=== PATIENT | female | born 1960 | race Caucasian/White ===

== ENCOUNTER 2022-08-06 15:17 | Outpatient (REF) | payer OTHER, SELFPAY ==
--- NOTE | ~2022-08-06 | MM_ITS ---
EXAMINATION: MM SCREENING DIGITAL BREAST TOMOSYNTHESIS, BILATERAL CLINICAL INFORMATION: Screening. Asymptomatic. The lifetime risk of breast cancer based on the Tyrer-Cuzick Model is 6.5%. COMPARISON: Mammography: None TECHNIQUE: Digital breast tomosynthesis is performed in both the craniocaudal and mediolateral oblique views along with computer-aided detection (CAD). Synthesized 2D images are generated from the tomosynthesis. FINDINGS: There are scattered areas of fibroglandular density (ACR BI-RADS breast composition Category b). About the anterior upper outer aspect of the left breast there is a region of density likely representing superimposition of fibroglandular tissue but for which spot compression view is recommended. There are noted to be a three (3) partially circumscribed densities about the central and medial aspects of the left breast measuring from 3 to 5 mm in diameter. Recommend spot compression view on these as well. If lesions are persistent then ultrasound could be performed. No right breast abnormality is appreciated. MM/MM tomosynthesis screening BI IMPRESSION: Left breast findings for further evaluation as described. ASSESSMENT: BI-RADS 0: Incomplete - Need Additional Imaging Evaluation RECOMMENDATION: 1. Additional views of the left breast 2. Targeted ultrasound if warranted after review of the additional views. 3. Radiology department staff will contact the patient for additional imaging. This patient's information was entered into a reminder system with a target due date for their next mammogram.
== END 2022-08-06 15:18 | disposition home or self-care (01) ==
LOC: HO.MAMMO 15:17
PROVIDERS: Visit Provider Hospitalist
DX: Z12.31 Encounter for screening mammogram for malignant neoplasm of breast (principal)
CPT/HCPCS: 77063; 77067

== ENCOUNTER 2022-08-07 09:08 | Outpatient (REF) | payer OTHER, SELFPAY ==
[2022-08-07 11:55] LABS: Hematocrit 42.8 % (37.0-47.0); Hemoglobin 14.2 g/dl (12.0-16.0); Mean Corpuscular HGB Conc 33.2 g/dl (31.0-35.0); Mean Corpuscular Hemoglobin 28.2 pg (27.0-33.0); Mean Corpuscular Volume 85.1 fL (80.0-98.0); Mean Platelet Volume 9.5 fL (9.4-12.3); Platelet Count 367 X10*3/uL (160-400); Red Blood Count 5.03 X10*6/uL (4.20-5.50); Red Cell Distribution Width 12.3 % (11.0-16.0); White Blood Count 6.5 X10*3/uL (4.8-10.8)
[2022-08-07 12:40] LABS: Alanine Aminotransferase 23 U/L (0-31); Albumin Level 4.4 g/dL (3.5-5.0); Alkaline Phosphatase 68 U/L (39-117); Anion Gap 11 (12-20); Aspartate Amino Transferase 19 U/L (5-31); Bilirubin Total 0.7 mg/dL (0.0-1.0); Blood Urea Nitrogen 11 mg/dL (9-16); Carbon Dioxide 29 mmol/L (22-29); Chloride 106 mmol/L (96-108); Cholesterol 198 mg/dL; Estimated Glomerular Filt Rate > 60; Glucose Fasting 110 mg/dL (60-99); HDL Cholesterol 40 mg/dL; LDL Cholesterol Calculated 124 mg/dl; Potassium 4.3 mmol/L (3.3-5.1); Sodium 142 mmol/L (135-145); TSH reflex Free T4 1.61 uIU/mL (0.32-4.0); Total Protein 6.3 g/dL (6.5-8.0); Triglycerides 173 mg/dL
== END 2022-08-07 09:09 | disposition home or self-care (01) ==
LOC: HO.WFDLDS 09:08
PROVIDERS: Visit Provider Hospitalist
DX: F43.9 Reaction to severe stress, unspecified (principal); L66.1 Lichen planopilaris; E66.9 Obesity, unspecified
CPT/HCPCS: 36415; 80053; 80061; 84443; 85027

== ENCOUNTER 2022-08-28 13:45 | Outpatient (REF) | payer OTHER, SELFPAY ==
--- NOTE | ~2022-08-28 | MM_ITS ---
EXAMINATION: MM DIAGNOSTIC DIGITAL BREAST TOMOSYNTHESIS, LEFT CLINICAL INFORMATION: Recall from baseline screening for tiny nodularity central inner breast and question of asymmetric density anterior upper outer left breast. Age 62. TC score 7%. No known family history breast cancer. COMPARISON: Mammography: 08/06/2022 TECHNIQUE: Digital breast tomosynthesis is performed. 2D images are generated from the tomosynthesis. The following views are obtained: Spot CC x2, spot ML. FINDINGS: There are scattered areas of fibroglandular density (ACR BI-RADS breast composition Category b). The additional views anterior upper outer left breast show normal fibroglandular tissue. There is no underlying mass or architectural abnormality. Additional views central inner left breast demonstrate 3 punctate circumscribed nodules under 5 mm. Margins are smooth. Long-term chronicity is unknown and short interval six-month follow-up will be requested. Results are discussed with the patient at time of visit. MM/MM tomosynthesis added views L IMPRESSION: -Additional views anterior upper outer left breast are unremarkable. No mass or architectural abnormality. -Tiny benign-appearing nodularity central inner left breast with smooth margins consistent with recent baseline exam. ASSESSMENT: BI-RADS 3: Probably Benign RECOMMENDATION: Diagnostic left mammography in 6 months. This patient's information was entered into a reminder system with a target due date for their next mammogram.
== END 2022-08-28 13:46 | disposition home or self-care (01) ==
LOC: HO.MAMMO 13:45
PROVIDERS: PCP Hospitalist; Visit Provider Hospitalist
DX: R92.2 Inconclusive mammogram (principal)
CPT/HCPCS: 77061; 77065

== ENCOUNTER 2023-03-16 14:42 | Outpatient (REF) | payer OTHER, SELFPAY ==
--- NOTE | ~2023-03-16 | MM_ITS ---
EXAMINATION: MM DIAGNOSTIC DIGITAL BREAST TOMOSYNTHESIS, LEFT CLINICAL INFORMATION: 6 month follow-up tiny nodules anterior left breast previously seen 08/28/2022, and 08/06/2022. COMPARISON: Mammography: 08/28/2022, 08/06/2022. TECHNIQUE: Digital left breast tomosynthesis is performed in both the craniocaudal and mediolateral oblique views along with computer-aided detection (CAD). Synthesized 2D images are generated from the tomosynthesis. FINDINGS: There are scattered areas of fibroglandular density (ACR BI-RADS breast composition Category b). Additional views central anterior and inner left breast demonstrate 3 punctate circumscribed nodules under 5 mm., Entirely unchanged from 6 months prior. Margins are smooth. Given stability since 08/06/2022, these are likely benign. There are no new abnormalities. Six-month follow-up recommended to establish a one-year stability. There are no additional new abnormalities in the left breast. MM/MM tomosynthesis diagnostic LT IMPRESSION: There are no significant changes from prior study. Stable tiny anterior left breast nodules, without change are presumably and probably benign. Continued monitoring in six-months recommended when the patient is due for bilateral screening. ASSESSMENT: BI-RADS BI-RADS 3 - Probably benign finding(s) - 6 month follow-up suggested RECOMMENDATION: 6 Month F/U Results were provided to the patient at time of visit by the technologist. This patient's information was entered into a reminder system with a target due date for their next mammogram.
== END 2023-03-16 14:43 | disposition home or self-care (01) ==
LOC: HO.MAMMO 14:42
PROVIDERS: PCP Family Medicine; Visit Provider Hospitalist
DX: R92.2 Inconclusive mammogram (principal)
CPT/HCPCS: 77061; 77065

== ENCOUNTER → 2023-03-16 15:00 | Outpatient (BNV) | payer OTHER, SELFPAY | PROVIDERS: PCP Family Medicine; Visit Provider Radiology Diagnostic Radiology | DX: N63.20 Unspecified lump in the left breast, unspecified quadrant (principal) | CPT/HCPCS: 77061; 77065 ==

== ENCOUNTER 2023-09-09 13:00 | Outpatient (REF) | payer OTHER, SELFPAY ==
--- NOTE | ~2023-09-09 | MM_ITS ---
EXAMINATION: MM SCREENING DIGITAL BREAST TOMOSYNTHESIS, BILATERAL CLINICAL INFORMATION: Screening. Asymptomatic. 6 month follow-up for 3 tiny nodules anterior left breast previously seen 08/28/2022, and 08/06/2022. COMPARISON: Mammography: 03/16/2023, 08/28/2022, 08/06/2022 (BI-RADS 0). TECHNIQUE: Digital breast tomosynthesis is performed in both the craniocaudal and mediolateral oblique views along with computer-aided detection (CAD). Synthesized 2D images are generated from the tomosynthesis. FINDINGS: There are scattered areas of fibroglandular density (ACR BI-RADS breast composition Category b). The central anterior and inner left breast demonstrates 3 punctate circumscribed nodules under 5 mm, entirely unchanged from 6 months prior. Margins are smooth. These remain stable over one year, and remain probably benign. Mammographic follow-up in one year recommended to establish two-year stability. Otherwise, there are no suspicious masses, suspicious grouped calcifications, or areas of architectural distortion in either breast. The parenchymal pattern is stable from prior exams. No suspicious skin or axillary abnormalities. MM/MM tomosynthesis screening BI IMPRESSION: There are no significant changes from the prior study. Stable tiny anterior left breast nodules, without change remain probably benign. Continued monitoring in one year recommended when the patient is due for bilateral screening, to establish a two-year stability and benignity. There are no findings suspicious for malignancy in either breast. ASSESSMENT: BI-RADS BI-RADS 3 - Probably benign finding(s) - 12 month follow-up suggested RECOMMENDATION: 12 month diagnostic follow up Results were provided to the patient at time of visit by the technologist. This patient's information was entered into a reminder system with a target due date for their next mammogram.
== END 2023-09-09 13:01 | disposition home or self-care (01) ==
LOC: HO.MAMMO 13:00
PROVIDERS: PCP Family Medicine; Visit Provider Family Medicine
DX: Z12.31 Encounter for screening mammogram for malignant neoplasm of breast (principal)
CPT/HCPCS: 77063; 77067

== ENCOUNTER → 2023-09-09 13:00 | Outpatient (BNV) | payer OTHER, SELFPAY | PROVIDERS: PCP Family Medicine; Visit Provider Radiology Diagnostic Radiology | DX: Z12.31 Encounter for screening mammogram for malignant neoplasm of breast (principal) | CPT/HCPCS: 77063; 77067 ==

== ENCOUNTER 2024-08-14 08:16 | Outpatient (AMB) | payer OTHER, SELFPAY ==
--- NOTE | 2024-08-14 08:24 | MHC.PC.OV ---
Vital Signs 08/14/24 08:29 Height 5 ft 6 in Weight 198 lb 4 oz BMI 32.0 BP 116/72 Blood Pressure Location Rt brachial Position Sitting Respiration 14 Pulse 91 Pulse Source Pulse Oximeter Temp 98.8 F Temp Source Temporal Artery Scan Pulse Oximetry (%) 95 Oxygen Delivery Method Room Air Intake Visit Reasons: Annual PE Intake Note: Lianne presents in the office today for her annual physical. Allergies Seasonal Allergies Allergy (Verified 08/14/24 08:25) Hayfever Tobacco use date assessed: 08/14/24 HPI HPI Comments History of Present Illness Details This is a 64-year-old female presenting for a physical exam. She is followed by Dermatology for alopecia. She received Shingrix vaccine on 03/06/24, and the first week of March she developed Shingles on the right side of her face. This resolved on prednisone and valtrex. Patient wanted to know if and when she should get the 2nd dose of Shingrix vaccine. I will review recommendations for this particular situation. She notes that she received the influenza vaccine and COVID-19 vaccine at the same time as Shingrix. Pneumonia vaccine was recommended for her. She agreed, but we did not have it in the office today so she will get this at the pharmacy. Patient is referred for annual gynecologic exam. Mammogram scheduled next month. Bone density ordered. She declines colonoscopy. Patient had a negative Cologuard screening on 08/25/2022. ROS: Constitutional: No unexplained weight loss, fever, chills, fatigue or night sweats. Eyes: No vision changes, blurry vision, double vision, eye pain, eye redness, eye discharge. ENT: No hearing loss, sneezing, congestion, runny nose or sore throat. Respiratory: No shortness of breath, cough or sputum production. Cardiovascular: No chest pain, chest pressure or chest discomfort. No palpitations or pedal edema. Gastrointestinal: No anorexia, nausea, vomiting or diarrhea. No abdominal pain or blood in stool. Genitourinary: No dysuria, hematuria, urinary frequency. Neurologic: No headache, dizziness, syncope, unilateral weakness, ataxia, numbness or tingling in the extremities. Musculoskeletal: No muscle pain, back pain, joint pain or swelling. Hematologic/Lymphatics: No bleeding or bruising. No painful lymph nodes. Skin: No rash. Denies changing moles or freckles. Endocrine: No cold or heat intolerance. No polyuria or polydipsia. Psychiatric: No depression or anxiety. No SI/HI. Physical exam: Constitutional: Alert, in no distress. Head: Normocephalic. Eyes: Pupils are equal, round and reactive to light. Extraocular muscles intact. Ear, Nose and Throat: Canals clear. TMs normal. Normal nasal mucosa. No nasal discharge. No oral lesions. Neck: Supple, Full range of motion. No lymphadenopathy. No palpable thyroid masses. Respiratory: Clear to auscultation. Cardiovascular: S1 S2 regular. No murmurs. No carotid bruits. Gastrointestinal: Abdomen soft, non-tender, non-distended. Normal bowel sounds. No palpable masses. Neurologic: No focal neurological deficits. Symmetric patellar reflexes. Moves all extremities spontaneously. Sensation intact bilaterally. Skin: Freckled skin. No rashes. Musculoskeletal: No gross deformities. Normal range of motion. Extremities: Warm and well perfused. No clubbing, cyanosis or edema. Intact peripheral pulses. Psychiatric: Normal mood and affect [facility] Medical History (Updated 08/14/24 @ 08:44 by ANGELI Jauregui) Routine physical examination Screening for cardiovascular condition Sinusitis Frontal fibrosing alopecia Surgical History No pertinent past surgical history Family History Father Alcoholism Paternal Grandmother Asthma Maternal Grandfather Cardiovascular disease Paternal Grandfather Alcoholism Brother Psychiatric diagnosis Social History (Updated 08/14/24 @ 08:28 by Minoo Cosme MA) Housing: Condominium Alcohol intake: current Alcohol intake frequency: a few times a week Alcohol type: wine and hard liquor Patient Tobacco Use Status: Never used Tobacco e-Cigarette/Vaping Use: Never Used Substance Use Type: Marijuana service: No Current occupational status: retired Cognitive needs: No Hearing needs: No Vision needs: Yes (Patient see's an eye doctor ) Questionnaire PHQ-9 Over the last 2 weeks, how often have you been bothered by any of the following problems? 1. Little interest or pleasure in doing things: not at all 2. Feeling down, depressed, or hopeless: not at all 3. Trouble falling or staying asleep, or sleeping too much: several days 4. Feeling tired or having little energy: several days 5. Poor appetite or overeating: several days 6. Feeling bad about yourself - or that you are a failure or have let yourself or your family down: not at all 7. Trouble concentrating on things, such as reading the newspaper or watching television: not at all 8. Moving or speaking so slowly that other people could have noticed. Or the opposite - being so fidgety or restless that you have been moving around a lot more than usual: not at all 9. Thoughts that you would be better off or of hurting yourself in some way: not at all Total score: 3 Depression Screening Interpretation: Negative Depression Screening Done: Yes 68540 - PHQ-9 Billing: Patient declined-do not bill Source: Developed by Drs. Dre Nazario, Nay Joseph, Luis Almanza and colleagues, with an educational trinh from [employer]. Thrive Questionnaire Date Thrive assessed: 08/14/24 I am a: Patient What is your living situation today?: I have a steady place to live Within the past 12 months, did the food you bought not last and you didn't have the money to get more?: Never true Within the past 12 months, did you worry whether your food would run out before you got money to buy more?: Never true Do you have trouble paying for medicines?: No Do you have trouble getting transportation to medical appointments?: No Do you have trouble paying your heating and electricity bill?: No Do you have trouble taking care of your child, family member or friend?: No Do you have trouble with day-to-day activities such as bathing, preparing meals, shopping, managing finances, etc.?: No Are you currently unemployed and looking for a job?: No Are you interested in more education?: No Please select the resources that you would like help with: None Currently or been in a relationship where the following occur: No concerns reported THRIVE Score: 0 AUDIT C Alcohol Use Questionnaire (AUDIT-C) 1. How often do you have a drink containing alcohol?: 2-4 times a month 2. How many drinks containing alcohol do you have on a typical day when you are drinking?: 1 or 2 3. How often do you have six or more drinks on one occasion?: Never Total Score: 2 Score Reviewed/Action Taken: No MICHELE-7 AMB Questionnaire MICHEEL-7 Date MICHELE - 7 assessed: 08/14/24 Feeling nervous, anxious, or on edge: 1 = Several days Not being able to stop or control worryin = Several days Worrying too much about different things: 1 = Several days Trouble relaxin = Several days Being so restless that it is hard to sit still: 0 = Not at all Becoming easily annoyed or irritable: 1 = Several days Feeling afraid as if something awful might happen: 1 = Several days Total MICHELE-7 score (0-4 normal; 5-9 mild; 10-14 moderate; 15-21 severe): 6 Source: Developed by Drs. Dre Nazario, Nay Joseph, Luis Almanza and colleagues, with an educational trinh from [employer]. ACT Questionnaire In the past 4 weeks, how much of the time did your asthma keep you from getting as much done at work, school or at home?: None of the time Score: 5 Physical exam (Primary Care) Vital Signs: Last Vital Signs Temp 98.8 F 08/14/24 08:29 Pulse 91 08/14/24 08:29 Resp 14 08/14/24 08:29 BP 116/72 08/14/24 08:29 Pulse Ox 95 08/14/24 08:29 Oxygen Delivery Method Room Air 08/14/24 08:29 BMI result Body Mass Index 32.0 Tobacco/Smoking Status: Tobacco use Status Tobacco use date assessed 08/14/24 08/14/24 08:33 Patient Tobacco Use Status Never used Tobacco 08/14/24 08:33 e-Cigarette/Vaping Use Never Used 08/14/24 08:33 PHQ-9: PHQ-9 Score PHQ-9: Total score 3 08/14/24 08:33 Depression Screening Interpretation: Negative Thrive Assessment: Date of Thrive Assessment Date Thrive assessed 08/14/24 08/14/24 08:33 Currently or been in a relationship where the following occur: No concerns reported Coding Level of Care Code Est Pt Prev Care 40-64y(43878) Diagnoses Routine physical examination Z00.00 Screening for cardiovascular condition Z13.6 Frontal fibrosing alopecia L66.1 Assessment & Plan Assessment & Plan (1) Routine physical examination: Code(s): Z00.00 - Encounter for general adult medical examination without abnormal findings Category: Medical (2) Screening for cardiovascular condition: Code(s): Z13.6 - Encounter for screening for cardiovascular disorders Category: Medical (3) 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 As part of this visit we reviewed the following issues, which are considered and essential part of preventative health in this age group: - Breast Cancer screening - Annual Boring Inspector exam - Screening for colon cancer - Blood pressure screening - Cholesterol screening - Osteoporosis prevention including calcium/vitamin D intake, weight bearing exercise & smoking cessation. Patient takes a multivitamin which contains vitamin-D. - Nutritional and exercise counseling - Counseling of injury prevention including fire prevention, smoke alarms and seat belt usage - Screening for depression - Education about skin cancer - Recommendations about immunizations - Recommendation of an eye exam Follow up in 1 year for a complete physical exam. Orders: Orders Comprehensive Met. Panel Today Z00.00 - Encounter for general adult medical examination without abnormal findings, Z13.6 - Encounter for screening for cardiovascular disorders Lipid Panel Today E78.5 - Hyperlipidemia, unspecified, Z00.00 - Encounter for general adult medical examination without abnormal findings, Z13.6 - Encounter for screening for cardiovascular disorders Complete Blood Count no Diff Today Z00.00 - Encounter for general adult medical examination without abnormal findings, Z13.6 - Encounter for screening for cardiovascular disorders XR DEXA axial skeleton Today E28.39 - Other primary ovarian failure Referrals Dermatology Referral 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
[2024-08-14 08:29] VITALS: BP 116/72; PULSE 91; RESP 14; TEMP 37.1; O2SAT 95; BMI 32.0
== END 2024-08-14 09:00 | disposition home or self-care (01) ==
LOC: HO.HMCFM 08:17
PROVIDERS: PCP Family Medicine; Visit Provider Physician Assistant Medical
DX: Z00.00 Encounter for general adult medical examination without abnormal findings (principal); Z13.6 Encounter for screening for cardiovascular disorders; L66.10 Lichen planopilaris, unspecified

== ENCOUNTER 2024-08-14 08:16 | Outpatient (REF) | payer OTHER, SELFPAY ==
[2024-08-14 11:25] LABS: Hematocrit 43.3 % (37.0-47.0); Hemoglobin 14.6 g/dl (12.0-16.0); Mean Corpuscular HGB Conc 33.7 g/dl (31.0-35.0); Mean Corpuscular Hemoglobin 28.1 pg (27.0-33.0); Mean Corpuscular Volume 83.3 fL (80.0-98.0); Mean Platelet Volume 9.5 fL (9.4-12.3); Platelet Count 367 X10*3/uL (160-400); Red Cell Distribution Width 12.1 % (11.0-16.0); White Blood Count 6.4 X10*3/uL (4.8-10.8)
[2024-08-14 11:29] LABS: Alanine Aminotransferase 35 U/L (0-31); Albumin Level 4.7 g/dL (3.5-5.0); Alkaline Phosphatase 77 U/L (39-117); Anion Gap 13 (12-20); Aspartate Amino Transferase 27 U/L (5-31); Bilirubin Total 0.5 mg/dL (0.0-1.0); Blood Urea Nitrogen 12 mg/dL (9-16); Calcium 9.1 mg/dL (8.4-10.2); Carbon Dioxide 26 mmol/L (22-29); Chloride 105 mmol/L (96-108); Cholesterol 205 mg/dL (<200); Estimated Glomerular Filt Rate > 60; Glucose Random 121 mg/dL (60-115); HDL Cholesterol 44 mg/dL (>40); LDL Cholesterol Calculated 128 mg/dL (<100); Sodium 140 mmol/L (135-145); Total Protein 7.2 g/dL (6.5-8.0); Triglycerides 165 mg/dL (<150)
== END 2024-08-14 08:17 | disposition home or self-care (01) ==
LOC: HO.WFDLDS 08:16
PROVIDERS: PCP Family Medicine; Visit Provider Physician Assistant Medical
DX: Z00.00 Encounter for general adult medical examination without abnormal findings (principal); Z13.6 Encounter for screening for cardiovascular disorders; E78.5 Hyperlipidemia, unspecified
CPT/HCPCS: 36415; 80053; 80061; 85027

== ENCOUNTER 2024-09-12 11:15 | Outpatient (REF) | payer OTHER, SELFPAY ==
--- NOTE | ~2024-09-12 | MM_ITS ---
EXAMINATION: MM DIAGNOSTIC DIGITAL BREAST TOMOSYNTHESIS, BILATERAL CLINICAL INFORMATION: Two-year follow-up for left breast asymmetry. COMPARISON: Mammography: Comparison is made with relevant prior exams. TECHNIQUE: Digital breast mammography with tomosynthesis is performed in both the craniocaudal and mediolateral oblique views along with computer-aided detection (CAD). FINDINGS: There are scattered areas of fibroglandular density (ACR BI-RADS breast composition Category b). Right: There are no significant masses, abnormal calcifications, or other abnormalities. Left: The previously seen asymmetry in the central inner left breast is not significantly changed from prior mammograms dating back for 2 years and less conspicuous compared with priors therefore benign. No suspicious masses calcifications or other abnormal findings. Results are provided to the patient at time of visit by the technologist. MM/MM tomosynthesis diagnostic BI IMPRESSION: No mammographic evidence of malignancy. ASSESSMENT: BI-RADS BI-RADS 2 - Benign Findings RECOMMENDATION: 1 year F/U This patient's information was entered into a reminder system with a target due date for their next mammogram. Electronically signed by: Carolee Hammonds DO 09/14/2024 08:58 AM EDT
== END 2024-09-12 11:16 | disposition home or self-care (01) ==
LOC: HO.MAMMO 11:15
PROVIDERS: PCP Family Medicine; Visit Provider Family Medicine
DX: R92.2 Inconclusive mammogram (principal)
CPT/HCPCS: 77062; 77066

== ENCOUNTER → 2024-09-12 11:30 | Outpatient (BNV) | payer OTHER, SELFPAY | PROVIDERS: PCP Family Medicine; Visit Provider Internal Medicine | DX: N64.89 Other specified disorders of breast (principal) | CPT/HCPCS: 77062; 77066 ==

== ENCOUNTER 2024-09-26 09:38 | Outpatient (REF) | payer OTHER, SELFPAY ==
[2024-09-26 11:46] LABS: Alanine Aminotransferase 33 U/L (0-31); Aspartate Amino Transferase 22 U/L (5-31)
[2024-09-26 12:01] LABS: Estimated Average Glucose 131 mg/dL; Hemoglobin A1c % 6.2 % (<6.0)
== END 2024-09-26 09:39 | disposition home or self-care (01) ==
LOC: HO.WFDLDS 09:38
PROVIDERS: Visit Provider Physician Assistant Medical
DX: E11.9 Type 2 diabetes mellitus without complications (principal); R79.89 Other specified abnormal findings of blood chemistry; E78.5 Hyperlipidemia, unspecified
CPT/HCPCS: 36415; 83036; 84450; 84460

== ENCOUNTER 2024-10-03 09:39 | Outpatient (REF) | payer OTHER, SELFPAY ==
--- NOTE | ~2024-10-03 | MM_ITS ---
EXAMINATION: BONE DENSITOMETRY CLINICAL INDICATION: Primary ovarian failure. COMPARISON: This is the patient's baseline examination. TECHNIQUE: Using a [employer] dual-energy x-ray absorptiometry was performed of the lumbar spine and left hip. The images are of good technical quality. Summary results are attached. FINDINGS: AP SPINE L3-L4. BMD 1.239 g/cm2, Z-score 1.0, T-score 0.3,. LEFT FEMUR, NECK: BMD 1.006 g/cm2, Z-score 0.5, T-score 0.0,. IDENTIFIED RISK FACTORS: None listed. HISTORY OF FRACTURE: Secondary osteoporosis. Family history of fracture. MEDICATIONS: None listed. MM/XR DEXA axial skeleton IMPRESSION: 1. DIAGNOSIS: Normal bone mineral density based on the lowest T-score value of 0.3 in the lumbar spine applying World Health Organization criteria. 2. 10-YEAR FRACTURE RISK PREDICTION, FRAX: Normal bone mineral density with low-risk fracture. 3. Treatment Recommendations: NOF guidelines recommend consideration for treatment in postmenopausal women and men age 50 and older presenting with the following: -A hip or vertebral (clinical or morphometric) fracture. -T-score less than or equal to -2.5 at the femoral neck or spine after appropriate evaluation to exclude secondary causes. -Low bone mass at the hip or spine and a 10-year fracture probability by FRAX of greater than or equal to 3% for hip fracture or greater than or equal to 20% for major osteoporotic fracture based on the [place] adapted WHO algorithm. 4. All treatment decisions require clinical judgment and consideration of individual patient risk factors including patient preferences comorbidities, previous drug use, risk factors not captured the fact spondylosis and possible under overestimation of fracture risk at fractures. Additional medical evaluation for secondary causes of bone mineral density may be appropriate FUTURE SCAN RECOMMENDATION: People with diagnosed cases of osteoporosis or at high risk for fracture should have regular bone mineral density tests. For patients eligible for Medicare, routine testing is allowed once every 2 years. The testing frequency can be increased to one year for patients who have rapidly progressing disease, those who are receiving or discontinuing medical therapy to restore bone mass, or have additional risk factors. Electronically signed by: Mathieu Ramon MD 10/03/2024 04:43 PM EDT
== END 2024-10-03 09:40 | disposition home or self-care (01) ==
LOC: HO.MAMMO 09:39
PROVIDERS: PCP Family Medicine; Visit Provider Physician Assistant Medical
DX: Z13.820 Encounter for screening for osteoporosis (principal); E28.39 Other primary ovarian failure
CPT/HCPCS: 77080

== ENCOUNTER → 2024-10-03 10:00 | Outpatient (BNV) | payer OTHER, SELFPAY | PROVIDERS: PCP Family Medicine; Visit Provider Radiology Diagnostic Radiology | DX: E28.39 Other primary ovarian failure (principal) | CPT/HCPCS: 77080 ==

== ENCOUNTER 2024-11-02 08:38 | Outpatient (AMB) | payer OTHER, SELFPAY ==
--- NOTE | 2024-11-02 09:16 | A.OFFVIS_ITS ---
VS Expanded 11/02/24 09:17 11/08/24 13:04 Height 5 ft 6 in 5 ft 6 in Weight 198 lb 3.129 oz 198 lb BMI 32.0 32.0 Intake Visit Reasons: Prediabetes Allergies Seasonal Allergies Allergy (Verified 08/14/24 08:25) Hayfever Nutrition Presentation Details: Pt presents for MNT for Pre DM BS Monitoring Most Recent Diabetes Results: Cholesterol, (<200) 205 mg/dL H 08/14/24 HDL Cholesterol, (>40) 44 mg/dL 08/14/24 Triglycerides, (<150) 165 mg/dL H 08/14/24 Creatinine, (0.5-1.4) 0.75 mg/dL 08/14/24 BUN, (9-16) 12 mg/dL 08/14/24 Sodium, (135-145) 140 mmol/L 08/14/24 Potassium, (3.3-5.1) 4.0 mmol/L 08/14/24 Chloride, (96-108) 105 mmol/L 08/14/24 Carbon Dioxide, (22-29) 26 mmol/L 08/14/24 Calcium, (8.4-10.2) 9.1 mg/dL 08/14/24 AST, (5-31) 22 U/L 09/26/24 ALT, (0-31) 33 U/L H 09/26/24 Total Protein, (6.5-8.0) 7.2 g/dL 08/14/24 Albumin, (3.5-5.0) 4.7 g/dL 08/14/24 EHE-Zdptmcr-Ag.Jeor Equation Height: 5 ft 6 in Weight: 198 lb Resting Metabolic Rate: 1474.00 Calculated Activity Level: Sedentary Calories Needed to Maintain Weight: 1768.80 Diagnosis As related to (etiology) #1: diagnosis As evidenced by (sign/symptom) #1: knowledge deficit of diet (a1c at 6.2% 08/11, elevated Tg, tot chol) [facility] Medical History (Updated 10/02/24 @ 16:58 by ANGELI Jauregui) Prediabetes Hyperlipidemia LFT elevation IFG (impaired fasting glucose) Routine physical examination Screening for cardiovascular condition Sinusitis Frontal fibrosing alopecia Surgical History No pertinent past surgical history Family History Father Alcoholism Paternal Grandmother Asthma Maternal Grandfather Cardiovascular disease Paternal Grandfather Alcoholism Brother Psychiatric diagnosis Social History (Updated 08/14/24 @ 08:28 by Minoo Cosme MA) [facility] Alcohol intake: current Alcohol intake frequency: a few times a week Alcohol type: wine and hard liquor Patient Tobacco Use Status: Never used Tobacco e-Cigarette/Vaping Use: Never Used Substance Use Type: Marijuana service: No Current occupational status: retired Cognitive needs: No Hearing needs: No Vision needs: Yes (Patient see's an eye doctor ) Assessment & Plan Assessment & Plan (1) Prediabetes: Code(s): R73.03 - Prediabetes Category: Medical Plan: Wt: 90 Kg ( 11/10 ) Est kcal needs as per MSJ: 4971-2665 (40% carb, 30% protein/fat) Est fluid needs as per 25-30 ml/d: 2700 Est prot per day as per 1 g/kg bw: 90 Recommend fiber intake : 8-10 g per day and gradually increase to 25-28 g per day for women and 35-38 g for men or as tolerated Recommend sodium intake per day : less than 2300 mg Educated patient on: ( R = reviewed V = verbalizes understanding N/R = needs review N/A = not applicable * Food sources of carbohydrate, adequate serving sizes and its role in various health conditions: R * Differences between complex carbohydrates a simple carbohydrates, role of fiber in diet: R * Lean protein sources of foods: R * Differences between types of fats and role in diet (mono on saturated fat fatty acids, saturated fatty acids, trans fats): R V N/R * Food sources of sodium in salt and healthy modifications for heart health in kidney health: R V R/V * Vitamins and minerals: R V N/R * Healthy plate method concept: R * Physical activity: Benefits a precaution: R * Hypoglycemia protocol (rule of 15): R V N/R * Dietary prevention of Hyperglycemia: R Patient Instructions: Engage in physical activity 30-40 min 3 times/wk Work on reducing total carbs to 45 g per meal following healthy plate (3 meal/day)and 0-20 g carb as snack Consider having a meal replacement once a day Coding Level of Care Code Nutr Indiv Intake (68714) Diagnoses Prediabetes R73.03 Time Spent (min) 30
[2024-11-02 09:17] VITALS: BMI 32.0
[2024-11-08 13:04] VITALS: BMI 32.0
== END 2024-11-02 09:45 | disposition home or self-care (01) ==
LOC: HO.ENCR 08:39
PROVIDERS: PCP Family Medicine; Visit Provider Dietitian, Registered
DX: R73.03 Prediabetes (principal)

== ENCOUNTER → 2024-11-02 08:38 | Outpatient (BNVA) | payer OTHER, SELFPAY | PROVIDERS: PCP Family Medicine; Visit Provider Dietitian, Registered | DX: R73.03 Prediabetes (principal) | CPT/HCPCS: 97802 ==

== ENCOUNTER 2024-11-23 07:37 | Outpatient (REF) | payer OTHER, SELFPAY ==
--- NOTE | ~2024-11-23 | US_ITS ---
EXAMINATION: US ABDOMEN LIMITED WITH LIVER ELASTOGRAPHY CLINICAL INFORMATION: Prediabetes . Elevated LFTs. COMPARISON: None. TECHNIQUE: Real-time imaging of the abdominal viscera. Noninvasive ultrasound liver fibrosis assessment is performed using Siemens point quantification shear wave elastography (pSWE) with a C5-2 MHz transducer. Multiple elastography samples are obtained. FINDINGS: PANCREAS: Normal. The visualized pancreatic head and body are normal in appearance. The remainder of the pancreas is obscured from visualization by the overlying bowel gas. LIVER: Borderline enlarged. The liver demonstrates diffusely increased hepatic echogenicity, suggestive of fatty infiltration. There is normal hepatic contour. There is no suspicious lesion. There is no intrahepatic biliary dilatation. The right lobe measures 16.5 cm in length. The left lobe measures 12.0 cm in length. Portal flow is towards the liver (hepatopetal). Shear wave liver elastography median stiffness is 4.4 kPa (reference: normal median stiffness is 5 kPa or less). (1.18 m/s stiffness) IQR/median stiffness to assess sampling precision is 0.28 (reference: good quality data set is IQR/median stiffness of 0.30 or less). GALLBLADDER: Normal. The gallbladder is physiologically distended without evidence of stones, sludge, polyps, wall thickening or pericholecystic fluid. COMMON BILE DUCT: Normal in caliber measuring 0.4 cm in diameter. RIGHT KIDNEY: Normal. No hydronephrosis. No renal calculi or focal parenchymal lesions. The kidney measures 11.2 cm in maximum dimension. FREE FLUID: None. US/US abdomen santizo w elastography IMPRESSION: 1. Mildly diffusely increased hepatic echogenicity in keeping with fatty infiltration. No focal suspicious lesion. 2. Liver elastography: Measurements are consistent with a high probability of normal liver stiffness. There is a quality data set. 3. Normal gallbladder and bile ducts. REFERENCE: Society of Radiologists in Ultrasound Liver Stiffness Thresholds (2020): LIVER STIFFNESS THRESHOLDS: *Liver Stiffness equal or less than 5 kPa: High probability of being normal. *Liver Stiffness less than 9 kPa: In the absence of other known clinical signs, rules out compensated advanced chronic liver disease. *Liver Stiffness 9-13 kPa: Suggestive of compensated advanced chronic liver disease but need further test for confirmation. *Liver Stiffness over 13 kPa: Rules in compensated advanced chronic liver disease. *Liver Stiffness over 17 kPa: Suggestive of clinically significant portal hypertension. QUALITY OF DATA SET: *IQR/Median value equal or less than 0.30 implies a quality data set. *IQR/Median value over 0.30 implies a poor quality data set. SIGNIFICANT CHANGE FROM PRIOR EXAM: Significant change if liver stiffness measurement is 10% or greater from prior exam. OTHER CONSIDERATIONS: The stage of liver fibrosis may be overestimated in the setting of acute hepatitis, liver inflammation, elevated liver function tests, hepatic vascular congestion, obstructive cholestasis, non-fasting state, and infiltrative diseases such as amyloidosis and lymphoma. In some patients with NAFLD, the liver stiffness thresholds for compensated advanced chronic liver disease may be lower. In causes other than viral hepatitis and NAFLD, liver stiffness thresholds are not well established. Electronically signed by: Syd Goodrich MD 11/23/2024 08:45 AM EDT
--- OUTSIDE RECORDS SUMMARY | 2024-11-23 07:39 | XMS_ITS | Clinical Summary ---
Author Organization [facility] Address [address] [place] [id number] Phone Care Team Providers Care Flat Surfacer Jewel Name Role Phone Drew Dhaliwal MD Primary Care Provider Allergies No known active allergies Medications doxycycline monohydrate (MONODOX) 50 MG capsule QOD 4 Active minoxidiL (LONITEN) 2.5 MG tablet 4 Active finasteride (PROPECIA) 1 mg tablet Take 1 mg by mouth daily. Active tacrolimus (PROTOPIC) 0.03 % ointment Apply topically 2 (two) times a day. Active predniSONE (DELTASONE) 20 MG tablet Take 1 tablet (20 mg total) by mouth daily with breakfast. 5 tablet 4 Active Active Problems No known active problems Immunizations No known immunizations Social History Tobacco Use Types Packs/Day Years Used Date Smoking Tobacco: Never Assessed Education Answer Date Recorded Are you interested in more education? Not on chris e 03/24/2024 Are you concerned about learning? Not on file 03/24/2024 No 03/24/2024 No 03/24/2024 Digital Access Answer Date Recorded No 03/24/2024 No 03/24/2024 Reliable internet access at home? Not on file 03/24/2024 Device with a working camera? Not on file Comments Unknown Sex and Gender Information Value Date Recorded Sex Assigned at Not on file Legal Sex Female 3:42 PM EST Gender Identity Not on file Sexual Orientation Not on file Last Filed Vital Signs Vital Sign Reading Time Taken Comments Blood Pressure 139/91 03/24/2024 4:11 PM EST Pulse 94 03/24/2024 4:11 PM EST Temperature 36.8 C (98.2 F) 03/24/2024 4:11 PM EST Respiratory Rate 16 03/24/2024 4:11 PM EST Oxygen Saturation 97% 03/24/2024 4:11 PM EST Inhaled Oxygen Concentration - - Weight - - Height - - Body Mass Index - - Plan of Treatment Health Maintenance Due Date Last Done Comments Adult Td,Tdap Booster 1961 LIPID PANEL 1961 DEPRESSION SCREENING 1973 SMOKING Hx and SMOKELESS TOBACCO SCREENING 1974 HEPATITIS C SCREENING 1979 HIV ONE-TIME SCREENING (18-65 YEARS) 1979 PAP SMEAR 1982 MAMMOGRAM 2001 COLOGUARD 2006 COLONOSCOPY 2006 COLORECTAL CANCER SCREENING 2006 FIT TEST 2006 FOBT 2006 SIGMOIDOSCOPY 2006 VIRTUAL COLONOSCOPY 2006 PNEUMOCOCCAL VACCINES (50+ years) (1 of 1 - PCV) 2011 ZOSTER VACCINES (2 of 2) 05/01/2024 03/06/2024 RSV VACCINE (1 - 1-dose 75+ series) 02/14/2036 COVID-19 VACCINE Completed 03/06/2024, , 11/01/2021, Additional history exists HEPATITIS A VACCINES Aged Out No long er eligible based on patient's age to complete this topic HIB VACCINES Aged Out No longer eligi ble based on patient's age to complete this topic MENINGOCOCCAL VACCINES (ACWY) Aged Out No longer eligible based on patient's age to complete this topic MENINGOCOCCAL VACCINES (B) Aged Out N o longer eligible based on patient's age to complete this topic Medical Devices Not on file Insurance [facility] PLAN [facility] Address: [address] [place] [address] [facility] Address: [address] [address] [facility] PLAN [facility] Address: [facility] [address] [place] [address] [facility] PLAN [facility] PLAN [facility] Address[facility] [address] [address] [place] [address] [facility] HEALTH PLAN [facility] Address: [address] [address] [place] [address] Care Teams Flat Surfacer Jewel Relationship Specialty Start Date End Date Drew Dhaliwal MD [address] [place] [address] PCP - General Family Medicine 03/24/24 Additional Source Comments The information contained in this document represents components of the legal health record. It is not the complete legal health record.[facility]
== END 2024-11-23 07:38 | disposition home or self-care (01) ==
LOC: HO.US 07:37
PROVIDERS: PCP Family Medicine; Visit Provider Physician Assistant Medical
DX: R73.03 Prediabetes (principal); R79.89 Other specified abnormal findings of blood chemistry
CPT/HCPCS: 76705; 76981

== ENCOUNTER → 2024-11-23 07:38 | Outpatient (BNV) | payer OTHER, SELFPAY | PROVIDERS: PCP Family Medicine; Visit Provider Radiology Diagnostic Radiology | DX: K76.0 Fatty (change of) liver, not elsewhere classified (principal) | CPT/HCPCS: 76705 ==

== ENCOUNTER 2024-12-27 11:13 | Outpatient (AMB) | payer OTHER, SELFPAY ==
--- NOTE | 2024-12-27 11:16 | A.OFFVIS_ITS ---
VS Expanded 12/27/24 11:18 Height 5 ft 6 in Weight 190 lb 4.143 oz BMI 30.7 Intake Visit Reasons: pre DM Allergies Seasonal Allergies Allergy (Verified 08/14/24 08:25) Hayfever Nutrition Presentation Details: Pt presents for MNT f/u for Pre DM Pt reports working on having a meal replacement a couple of times in the week Working on reducing sugars/processed foods physical activity: 30-40 minutes daily (5000 steps) keeping hydrated by having wate,r diluting juices with water BS Monitoring Most Recent Diabetes Results: Cholesterol, (<200) 205 mg/dL H 08/14/24 HDL Cholesterol, (>40) 44 mg/dL 08/14/24 Triglycerides, (<150) 165 mg/dL H 08/14/24 Creatinine, (0.5-1.4) 0.75 mg/dL 08/14/24 BUN, (9-16) 12 mg/dL 08/14/24 Sodium, (135-145) 140 mmol/L 08/14/24 Potassium, (3.3-5.1) 4.0 mmol/L 08/14/24 Chloride, (96-108) 105 mmol/L 08/14/24 Carbon Dioxide, (22-29) 26 mmol/L 08/14/24 Calcium, (8.4-10.2) 9.1 mg/dL 08/14/24 AST, (5-31) 22 U/L 09/26/24 ALT, (0-31) 33 U/L H 09/26/24 Total Protein, (6.5-8.0) 7.2 g/dL 08/14/24 Albumin, (3.5-5.0) 4.7 g/dL 08/14/24 [facility] Medical History (Updated 10/02/24 @ 16:58 by ANGELI Jauregui) Prediabetes Hyperlipidemia LFT elevation IFG (impaired fasting glucose) Routine physical examination Screening for cardiovascular condition Sinusitis Frontal fibrosing alopecia Surgical History No pertinent past surgical history Family History Father Alcoholism Paternal Grandmother Asthma Maternal Grandfather Cardiovascular disease Paternal Grandfather Alcoholism Brother Psychiatric diagnosis Social History (Updated 08/14/24 @ 08:28 by Minoo Cosme MA) Housing: Condominium Alcohol intake: current Alcohol intake frequency: a few times a week Alcohol type: wine and hard liquor Patient Tobacco Use Status: Never used Tobacco e-Cigarette/Vaping Use: Never Used Substance Use Type: Marijuana service: No Current occupational status: retired Cognitive needs: No Hearing needs: No Vision needs: Yes (Patient see's an eye doctor ) Assessment & Plan Assessment & Plan (1) Prediabetes: Code(s): R73.03 - Prediabetes Category: Medical Plan: Wt: 90 Kg ( 11/10 ), 56 kg(01/11) Est kcal needs as per MSJ: 1277-7220 (40% carb, 30% protein/fat) Est fluid needs as per 25-30 ml/d: 2700 Est prot per day as per 1 g/kg bw: 90 Recommend fiber intake : 8-10 g per day and gradually increase to 25-28 g per day for women and 35-38 g for men or as tolerated Recommend sodium intake per day : less than 2300 mg Educated patient on: ( R = reviewed V = verbalizes understanding N/R = needs review N/A = not applicable * Food sources of carbohydrate, adequate serving sizes and its role in various health conditions: R * Differences between complex carbohydrates a simple carbohydrates, role of fiber in diet: R * Lean protein sources of foods: R * Differences between types of fats and role in diet (mono on saturated fat fatty acids, saturated fatty acids, trans fats): R * Food sources of sodium in salt and healthy modifications for heart health in kidney health: R V R/V * Vitamins and minerals: R * Healthy plate method concept: R * Physical activity: Benefits a precaution: R * Hypoglycemia protocol (rule of 15): R V N/R * Dietary prevention of Hyperglycemia: R Patient Instructions: Continue working on reducing intake of foods previously fried/batter Include legumes at least twice a week , including fiber rich foods Try omega 3 sources of foods (fish twice a week, baked, nuts/seeds Coding Level of Care Code Nutr Indiv Subseq (24832) Diagnoses Prediabetes R73.03 Time Spent (min) 30
[2024-12-27 11:18] VITALS: BMI 30.7
--- OUTSIDE RECORDS SUMMARY | 2024-12-27 14:24 | XMS_ITS | Clinical Summary ---
Author Organization [facility] Address [address] [place] [phone] Phone Care Team Providers Care Advertising Columnist Name Role Phone Drew Dhaliwal MD Primary [...] ZOSTER VACCINES (2 of 2) 05/01/2024 03/06/2024 INFLUENZA VACCINE (#1) 2024 , 02/04/2023, 02/25/2022, Additional history exists RSV VACCINE (1 - 1-dose 75+ series) [...] topic Medical Devices Not on file Insurance [facility] HEALTH PLAN [facility] Address: [address] [place] [address] [facility] PLAN [facility] Address[facility] [place] [address] [place] [address] [facility] PLAN [facility] Address: [address] [address] [facility] PLAN [facility] Address: [address] [address] [facility] HEALTH PLAN [facility] Address[facility] [address] [address] [facility] HEALTH PLAN [facility] Address: [address] [address] Care Teams Advertising Columnist Relationship Specialty Start Date End Date Drew Dhaliwal MD [address] [place] [address] PCP - General Family Medicine 03/24/24 Additional Source Comments The information contained in this document represents components of the legal health record. It is not the complete legal health record.[facility]
== END 2024-12-27 11:52 | disposition home or self-care (01) ==
LOC: HO.ENCR 11:14
PROVIDERS: PCP Family Medicine; Visit Provider Dietitian, Registered
DX: R73.03 Prediabetes (principal)

== ENCOUNTER → 2024-12-27 11:13 | Outpatient (BNVA) | payer OTHER, SELFPAY | PROVIDERS: PCP Family Medicine; Visit Provider Dietitian, Registered | DX: R73.03 Prediabetes (principal) | CPT/HCPCS: 97803 ==